=== PATIENT | male | born 1950 | race Caucasian/White ===

== ENCOUNTER 2016-11-22 16:24 | Emergency (ER) | payer BC ==
[2016-11-22 17:08] VITALS: BP 143/76
--- NOTE | 2016-11-22 17:56 | UC ---
Shoulder Pain HPI - HPI Summary HPI Summary: ONSET OF LEFT SHOULDER PAIN, WORSE WITH MOVEMENT 2 DAYS AGO. NO DISCRETE INJURY. 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 DENIES CP, SOB, NAUSEA. - History of Current Complaint Chief Complaint: UCUpperExtremity Stated Complaint: LEFT SHOULDER PAIN Time Seen by Provider: 11/22/16 17:42 Hx Obtained From: Patient Onset/Duration: Gradual Onset, Lasting Days, Resolved Timing: Intermittent Episode Lasting Severity Initially: Moderate Severity Currently: None Location Of Pain: Is Discrete @ - LEFT SHOULDER Pain Intensity: 7 - 7/10 AT WORST, CURRENTLY PAIN IS RESOLVED Pain Scale Used: 0-10 Numeric Character: Sharp Aggravating Factor(s): Movement Alleviating Factor(s): Rest Associated Signs And Symptoms: Negative: Swelling, Redness, Numbness/Tingling Related History: Dominant Hand Right - Allergies/Home Medications Allergies/Adverse Reactions: Allergies Allergy/AdvReac Type Severity Reaction Status Date / Time No Known Allergies Allergy Verified 11/22/16 16:44 Home Medications: Home Medications Allopurinol TAB* [Zyloprim 100 MG TAB*] 100 mg PO DAILY 11/22/16 [History Confirmed 11/22/16] Bp Med, ?Name 11/22/16 [History] Hydrochlorothiazide TAB* [Hydrodiuril TAB*] 25 mg PO DAILY 11/22/16 [History Confirmed 11/22/16] Lisinopril TAB* [Prinivil TAB 10 MG*] 10 mg PO DAILY 11/22/16 [History Confirmed 11/22/16] amLODIPine TAB* [Norvasc 5 mg TAB*] 5 mg PO DAILY 11/22/16 [History Confirmed ] PMH/Surg Hx/FS Hx/Imm Hx Endocrine History: Thyroid Disease Cardiovascular History: Hypertension Cancer History: Prostate Cancer - Surgical History Surgical History: Yes Surgery Procedure, Year, and Place: PROSTATECTOMY. HERNIA REPAIR - Family History Known Family History: Negative: Hypertension - Social History Alcohol Use: Occasionally Substance Use Type: None Smoking Status (MU): Former Smoker Type: Cigarettes When Did the Patient Quit Smoking/Using Tobacco: 1978 Review of Systems Constitutional: Negative Skin: Negative Respiratory: Negative Cardiovascular: Negative Gastrointestinal: Negative Musculoskeletal: Arthralgia All Other Systems Reviewed And Are Negative: Yes Physical Exam Triage Information Reviewed: Yes Appearance: Well-Appearing, No Pain Distress, Well-Nourished Vital Signs: Initial Vital Signs Temp 98.4 F 11/22/16 16:56 Pulse 56 11/22/16 16:56 Resp 20 11/22/16 16:56 BP 143/76 11/22/16 16:56 Pulse Ox 97 11/22/16 16:56 Vital Signs Reviewed: Yes Eyes: Positive: Conjunctiva Clear ENT: Positive: Hearing grossly normal Neck: Positive: Supple Respiratory: Positive: No respiratory distress, No accessory muscle use Cardiovascular: Positive: Pulses Normal Abdomen Description: Positive: Soft Musculoskeletal: Positive: ROM Intact, No Edema, Other: - NOT TTP OVER MUSCLES OR BONY PROMINENCES LEFT SHOULDER/NECK Neurological: Positive: Alert Psychological: Positive: Age Appropriate Behavior Skin: Negative: rashes Diagnostics - Radiology LEFT SHOULDER XRAY Xray Interpretation: Positive (See Comments) - Mild acromioclavicular and moderate glenohumeral joint osteoarthritis. Radiology Interpretation Completed By: Radiologist Shoulder Course/Dx - Differential Dx/Diagnosis Provider Diagnoses: LEFT SHOULDER OSTEOARTHRITIS Discharge - Discharge Plan Condition: Stable Disposition: HOME Prescriptions: Cyclobenzaprine TAB* [Flexeril TAB*] 10 mg PO BID PRN #30 tab PRN Reason: Pain Naproxen [Naproxen EC] 500 mg PO BID PRN #30 tab PRN Reason: Pain Patient Education Materials: Osteoarthritis (ED) Referrals: Wilmer Naidu MD [Medical Doctor] - If Needed Ian Taylor MD [Primary Care Provider] - If Needed Additional Instructions: XRAY TODAY SHOWED SOME OSTEOARTHRITIS IN YOUR SHOULDER. YOU MAY HAVE AGGRAVATED THIS CONDITION BY REPETITIVE USE OF YOUR ARMS. TRY TO AVOID HEAVY PHYSICAL ACTIVITY AND OVERHEAD ACTIVITY WITH YOUR LEFT ARM AND WEAR THE SLING NEEDED FOR COMFORT. THIS MAY HELP WITH RESOLUTION OF SYMPTOMS. IF YOU ARE NOT IMPROVING OVER THE NEXT WEEK OR SO WOULD FOLLOW-UP WITH YOUR PCP OR ORTHO.
--- NOTE | 2016-11-22 18:14 | RAD ---
Indication: LEFT shoulder pain for 5 days. Comparison: No relevant prior exams available on the [facility] for comparison. Technique: Internal rotation AP, external rotation Grashey, scapular Y, axillary views LEFT shoulder Report: Normal acromioclavicular and glenohumeral joint alignment. Negative for fracture. Mild acromioclavicular and glenohumeral joint osteophytosis. Moderate glenohumeral joint space narrowing and mild subchondral sclerosis. Negative for stigmata of calcific tendinopathy. Unremarkable soft tissue contours. IMPRESSION: Mild acromioclavicular and moderate glenohumeral joint osteoarthritis.
== END 2016-11-22 18:53 | disposition home or self-care (01) ==
LOC: UCCORT 16:24
DX: M19.012 Primary osteoarthritis, left shoulder (principal); I10 Essential (primary) hypertension; E07.9 Disorder of thyroid, unspecified; Z85.46 Personal history of malignant neoplasm of prostate; Z87.891 Personal history of nicotine dependence
CPT/HCPCS: 93005; 99203; G0463

== ENCOUNTER 2016-12-24 11:58 | Emergency (ER) | payer BC ==
[2016-12-24 12:49] VITALS: BP 153/81
--- NOTE | 2016-12-24 14:20 | UC ---
Skin Complaint HPI - HPI Summary HPI Summary: Blisery and itchy rash on anterior thighs for one week - History of Current Complaint Chief Complaint: UCSkin Time Seen by Provider: 12/24/16 14:12 Stated Complaint: SKIN COMPLAINT Hx Obtained From: Patient Onset/Duration: Gradual Onset, Lasting Weeks - 1 Timing: Constant Onset Severity: Mild Current Severity: Mild Location: Diffuse - anterior bilateral thighs Aggravating Factor(s): Nothing Alleviating Factor(s): Nothing Associated Signs & Symptoms: Positive: Negative - Allergy/Home Medications Allergies/Adverse Reactions: Allergies Allergy/AdvReac Type Severity Reaction Status Date / Time No Known Allergies Allergy Verified 12/24/16 12:49 Home Medications: Home Medications Fluticasone NASAL SPRAY 50MCG* [Flonase NASAL SPRAY 50MCG*] 2 spray BOTH NARES DAILY PRN 12/24/16 [History Confirmed 12/24/16] Review of Systems Constitutional: Negative Skin: Rash - Small vesicles that open and scab Eyes: Negative ENT: Negative Respiratory: Negative Cardiovascular: Negative Gastrointestinal: Negative Genitourinary: Negative Motor: Negative Neurovascular: Negative Musculoskeletal: Negative Neurological: Negative Psychological: Negative Is Patient Immunocompromised?: No All Other Systems Reviewed And Are Negative: Yes PMH/Surg Hx/FS Hx/Imm Hx Previously Healthy: No - Gout Cardiovascular History: Hypertension - Surgical History Surgical History: Yes Surgery Procedure, Year, and Place: PROSTATECTOMY. HERNIA REPAIR - Family History Known Family History: Negative: Hypertension - Social History Occupation: Employed Full-time Lives: With Family Alcohol Use: Occasionally Substance Use Type: None Smoking Status (MU): Former Smoker Type: Cigarettes When Did the Patient Quit Smoking/Using Tobacco: 1978 Physical Exam Triage Information Reviewed: Yes Appearance: Well-Appearing, No Pain Distress, Well-Nourished Vital Signs: Initial Vital Signs Temp 98.4 F 12/24/16 12:43 Pulse 85 12/24/16 12:43 Resp 22 12/24/16 12:43 BP 153/81 12/24/16 12:43 Pulse Ox 97 12/24/16 12:43 Vital Signs Reviewed: Yes Eye Exam: Normal Eyes: Positive: Conjunctiva Clear ENT Exam: Normal ENT: Positive: Normal ENT inspection, Hearing grossly normal. Negative: Nasal congestion, Nasal drainage, Trismus, Muffled/hoarse voice Dental Exam: Normal Neck exam: Normal Neck: Positive: Supple, Nontender Respiratory Exam: Normal Respiratory: Positive: Chest non-tender, Lungs clear, No accessory muscle use Cardiovascular Exam: Normal Cardiovascular: Positive: RRR, Pulses Normal, Brisk Capillary Refill Abdominal Exam: Normal Musculoskeletal Exam: Normal Musculoskeletal: Positive: Strength Intact, ROM Intact Neurological Exam: Normal Neurological: Positive: Alert, Muscle Tone Normal Psychological Exam: Normal Skin Exam: Normal, Other Skin: Positive: Other - scattered vesicules that break and scab- Course/Dx - Course Course Of Treatment: Bactrimmild soap and water wash follow with pcp prn - Diagnoses Provider Diagnoses: Folliculitis, hypertension in poor control Discharge - Discharge Plan Condition: Stable Disposition: HOME Prescriptions: Sulfamethox/Trimethoprim DS* [Bactrim DS 800/160 TAB*] 1 tab PO BID #20 tab Patient Education Materials: Folliculitis (ED), DASH Eating Plan (ED), Hypertension (ED) Referrals: Ian Taylor MD [Primary Care Provider] - 2 Weeks
== END 2016-12-24 14:27 | disposition home or self-care (01) ==
LOC: UCCORT 11:58
DX: L73.9 Follicular disorder, unspecified (principal); I10 Essential (primary) hypertension; Z85.46 Personal history of malignant neoplasm of prostate; Z87.891 Personal history of nicotine dependence
CPT/HCPCS: 99212; G0463

== ENCOUNTER 2018-05-12 11:12 | Emergency (ER) | payer BC ==
[2018-05-12 12:13] VITALS: BP 140/70
--- NOTE | 2018-05-12 12:18 | UC ---
Eye Complaint HPI - HPI Summary HPI Summary: Right greater than left eye lid sticky drainage for 10 days; upper right lid redness today; slight itching, watering. No FB, no injury reported. has been using allergy eye drops without relief. - History of Current Complaint Chief Complaint: UCEye Stated Complaint: RIGHT EYE CONCERN Time Seen by Provider: 05/12/18 12:16 Hx Obtained From: Patient Onset/Duration: Gradual Onset, Lasting Days Timing: Constant Severity Initially: Mild Severity Currently: None Pain Intensity: 0 Location of Injury: Conjunctiva, Eye Lid (upper) - right, Sclera Associated Signs And Symptoms: Positive: Drainage (Purulent) - Allergies/Home Medications Allergies/Adverse Reactions: Allergies Allergy/AdvReac Type Severity Reaction Status Date / Time environmental Allergy Eyes Uncoded 05/12/18 12:14 Itchy/Swollen/Red/Watery Home Medications: Home Medications Ibuprofen TAB* [Advil TAB*] 200 mg PO Q6H PRN 05/12/18 [History Confirmed ] Loratadine 10 mg PO DAILY PRN 05/12/18 [History Confirmed 05/12/18] glipiZIDE TAB* [Glucotrol TAB*] 5 mg PO DAILY 05/12/18 [History Confirmed ] PMH/Surg Hx/FS Hx/Imm Hx Previously Healthy: Yes - Surgical History Surgical History: Yes Surgery Procedure, Year, and Place: PROSTATECTOMY. HERNIA REPAIR - Family History Known Family History: Negative: Hypertension - Social History Alcohol Use: Occasionally Substance Use Type: None Smoking Status (MU): Former Smoker Type: Cigarettes When Did the Patient Quit Smoking/Using Tobacco: 1978 Review of Systems All Other Systems Reviewed And Are Negative: Yes Constitutional: Positive: Negative Skin: Positive: Negative Eyes: Positive: Drainage, Eye Redness, Other - swollen upper lash line on right eye ENT: Positive: Nasal Discharge Respiratory: Positive: Negative Cardiovascular: Positive: Negative Gastrointestinal: Positive: Negative Genitourinary: Positive: Negative Motor: Positive: Negative Neurovascular: Positive: Negative Musculoskeletal: Positive: Negative Neurological: Positive: Negative Psychological: Positive: Negative Is Patient Immunocompromised?: No Physical Exam Triage Information Reviewed: Yes Appearance: Well-Appearing, Well-Nourished, Pain Distress Vital Signs: Initial Vital Signs Temp 99.4 F 05/12/18 12:06 Pulse 67 05/12/18 12:06 Resp 18 05/12/18 12:06 BP 140/70 05/12/18 12:06 Pulse Ox 95 05/12/18 12:06 Eyes: Positive: Conjunctiva Clear, Conjunctiva Inflamed, Discharge, Other: - right upper lid swelling along lash line, 2 styes noted ENT Exam: Normal ENT: Positive: Pharynx normal, Nasal congestion, Nasal drainage, TMs normal Dental Exam: Normal Neck exam: Normal Respiratory Exam: Normal Respiratory: Positive: Chest non-tender, Lungs clear, Normal breath sounds Cardiovascular Exam: Normal Cardiovascular: Positive: RRR, No Murmur, Pulses Normal Musculoskeletal Exam: Normal Neurological Exam: Normal Psychological Exam: Normal Skin Exam: Normal Eye Complaint Course/Dx - Course Course Of Treatment: hx obtained, exam performed ,meds reviewed, tread for conjunctivitis and styes - Differential Dx/Diagnosis Differential Diagnosis/HQI/PQRI: Conjunctivitis, Corneal Abrasion Provider Diagnosis: Stye, Conjunctivitis Discharge - Sign-Out/Discharge Documenting (check all that apply): Patient Departure All imaging exams completed and their final reports reviewed: No Studies - Discharge Plan Condition: Stable Disposition: HOME Prescriptions: Erythromycin OPHTH.OINT* [Ilotycin OPHTH.OINT*] 1 applic BOTH EYES TID #1 tube Patient Education Materials: Stye (ED), Conjunctivitis (ED) Referrals: Ian Taylor MD [Primary Care Provider] - Dell Gold OD [Doctor of Osteopathy] - Indio Harding MD [Medical Doctor] - Additional Instructions: 1. apply warm compresses to the right eye 3-4 times a day 2. use the medication as prescribed. 3. wash the lids after each warm compress. 4. FOllow up with eye doctor if not improving. i have included the names of a couple eye doctors if needed. - Billing Disposition and Condition Condition: STABLE Disposition: Home - Attestation Statements Provider Attestation: Per institutional requirements, I have reviewed the chart, however, I was not consulted specifically or made aware of this patient by the midlevel provider. I did not personally evaluate, interact with , or disposition this patient.
== END 2018-05-12 12:46 | disposition home or self-care (01) ==
LOC: UCCORT 11:12
DX: H00.011 Hordeolum externum right upper eyelid (principal); H10.9 Unspecified conjunctivitis; Z91.09 Other allergy status, other than to drugs and biological substances; Z87.891 Personal history of nicotine dependence
CPT/HCPCS: 99212; G0463

== ENCOUNTER 2019-01-25 11:41 | Emergency (ER) | payer BC ==
--- OUTSIDE RECORDS SUMMARY | 2019-01-25 11:47 | XMS REPORT | Summary of Care ---
:1950 Author Organization [facility] Address [address] [address] Care Team Providers Name Role Phone Ian Taylor Primary Care Provider Gerardo Wesley OD Primary Preparation Operator/[employer] Analyst Reason for Visit Reason Comments Wound Abscess f/u umbilical abscess, on second course of bactrim, feels better Arthritis discuss hand pain and pain mgt, takes 200mg ibuprofen q am Encounter Details Date Type Department Care Team Description 11/27/2018 Office Visit [facility] Ian Taylor MD Ulcer of abdomen wall, limited to breakdown of skin (HCC) (Primary Dx); Medicine [address] Needs flu shot; [address] [place] [address] Abdominal infection (HCC); [place] [address] Controlled type 2 diabetes mellitus without complication, without long-term current use of insulin ([facility]); [phone] BMI 39.0-39.9,adult Allergies Active Allergy Reactions Severity Noted Date Comments Environmental Other 11/26/2013 Itchy eye, runny nose, Metformin GI Reaction 01/01/2019 Diarrhea No Known Allergies Other 04/30/2007 documented as of this encounter (statuses as of 01/01/2019) Medications Medication Sig Dispensed Refills Start End Status Date Date loratadine Take 10 mg by 0 Active (CLARITIN,ALAVERT) 10 mouth DAILY. mg Oral Tab daily vitamin Oral Tab Take 1 Tab by 0 Active mouth DAILY. triamcinolone by Topical 30 g 5 Active (KENALOG,ARISTOCORT) route. Apply 1 0.1 % Apply externally to affected CreamIndications: areas daily Dermatitis as needed acetaminophen (TYLENOL) Take 650 mg 0 Active 325 MG Oral Tab by mouth EVERY FOUR HOURS NEEDED. colchicine (COLSALIDE) Take 1 Tab by 30 Tab 2 Active 0.6 MG Oral mouth TWO 4 TabIndications: Gout, TIMES DAILY unspecified NEEDED (gout). ibuprofen (MOTRIN) 200 Take 400 mg 0 Active MG Oral Tab by mouth EVERY SIX HOURS NEEDED for Pain. Ascorbic Acid (VITAMIN Take 1 Each 0 Active C) 500 MG Oral Cap by mouth DAILY. cyclobenzaprine Take 10 mg by 0 Active (CYCLOBENZAPRINE) 5 MG mouth THREE Oral Tab TIMES DAILY NEEDED. amLodipine (NORVASC) 5 TAKE ONE 90 Tab 3 Active MG Oral Tab TABLET BY 8 MOUTH EVERY DAY allopurinol (ZYLOPRIM) TAKE TWO 180 Tab 3 Active 100 MG Oral Tab TABLETS BY 9 MOUTH EVERY DAY fluticasone (FLONASE) SPRAY 2 16 g 11 Active 50 MCG/ACT Nasal SPRAYS IN 9 Suspension EACH NOSTRIL ONCE DAILY glipiZIDE (GLUCOTROL Take 1 Tab by 90 Tab 3 Active XL) 2.5 MG Oral TABLET mouth DAILY. 9 SR 24 HR hydrochlorothiazide TAKE ONE 90 Cap 3 Active (HCTZ, ORETIC) 12.5 MG CAPSULE BY 9 Oral Cap MOUTH EVERY DAY lisinopril (PRINIVIL, TAKE ONE 90 Tab 3 Active ZESTRIL) 40 MG Oral Tab TABLET BY 9 MOUTH EVERY DAY sulfamethoxazole-trimet Take 1 Tab by 20 Tab 3 Active hoprim (BACTRIM DS, mouth TWICE 9 SEPTRA DS) 800-160 MG DAILY. Oral Tab levothyroxine TAKE ONE 90 Tab 1 Discontinued (SYNTHROID) 50 MCG Oral TABLET BY 9 019 (Reorder) Tab MOUTH EVERY MORNING BEFORE BREAKFAST documented as of this encounter (statuses as of 01/01/2019) Active Problems Patient Care Coordination Note Met with pt reguarding wound care follow up. Pt to resume follow up with [facility]. Call placed to Masha at wound center, pt is already scheduled to come in on Sunday January 20, 2013 at 0800 for wound vac change. Most recent progress note (no discharge summary available) faxed to [phone] Problem Noted Date Diverticulosis of large intestine without hemorrhage 04/04/2018 Controlled type 2 diabetes mellitus without complication, without 12/25/2017 long-term current use of insulin Abdominal infection 08/27/2017 Tear of rotator cuff 01/19/2017 Tear of left rotator cuff 12/16/2016 Acute pain of left shoulder 12/04/2016 Erythrocytosis 02/03/2016 Overview: Due to obstructive sleep apnea, sometimes needing therapeutic phlebotomy if hematocrit is over 48. Gets monthly hemoglobin and hematocrit at [facility]. Skin erythema 04/28/2015 Fluid collection at surgical site 12/09/2014 Iliac artery aneurysm, bilateral 03/26/2014 Ventral hernia 10/27/2013 S/P recurrent ventral herniorrhaphy 05/05/2013 Chronic ulcer of other specified site 01/28/2013 Disruption of external operation (surgical) wound 01/28/2013 Non-healing surgical wound 01/28/2013 Abdominal fluid collection 01/16/2013 Wound infection after surgery 01/08/2013 Infected prosthetic mesh of abdominal wall 12/19/2012 Incisional hernia 10/28/2012 Secondary erythrocytosis 09/29/2012 Overview: Due to obstructive sleep apnea, periodically needing phlebotomy BMI 40.0-44.9, adult 09/29/2012 Overview: This patient's BMI has been calculated and is above average, and BMI management plan is completed. General patient education discussion including: obesity-related excess mortality, weight loss link to reduction of risk factors for cardiac and other diseases, importance of long-term maintenance treatment in weight loss Gout 09/26/2012 Overview: Not in last 10 years Mixed hyperlipidemia 05/21/2012 Overview: Lab Results Lab Results Value Date/Time CHOL 234 12/28/2011 1508 TRIG 296 12/28/2011 1508 HDL 32 12/28/2011 1508 LDL 143 12/28/2011 1508 LDLHDLRATIO 4.5 12/28/2011 1508 CHOLHDLRATIO 7.3 12/28/2011 1508 NAFLD (nonalcoholic fatty liver disease) 05/21/2012 Overview: Matt Sampson N.P. GI Prostate carcinoma 12/28/2011 Overview: [place] 3+3= 6, undergoing Lupron treatment, for planned prostatectomy HTN (hypertension), benign 09/11/2009 APOLINAR (obstructive sleep apnea) 12/23/2007 Overview: Bilevel positive airway pressure compliant with treatment Pulmonary MD Dr Rio [place], [place] Calculus of kidney 12/05/2006 Overview: [facility] 2013, uric acid composition Allergic rhinitis, cause unspecified 12/05/2006 Gout, unspecified 12/05/2006 Overview: 1st MTP left Hypothyroidism 12/05/2006 Personal history of colonic polyps 05/28/2006 Overview: Polypectomy 2007 Personal history of tobacco use, presenting hazards to health 05/28/2006 Overview: Quit 1979 Smoked from age [age] Polycythemia, secondary Diabetes documented as of this encounter (statuses as of 01/01/2019) Resolved Problems Problem Noted Date Resolved Date SBO (small bowel obstruction) 12/19/2012 12/19/2012 Ventral hernia, unspecified, without mention of obstruction 11/29/20122012 or gangrene Morbid obesity 12/28/2011 12/26/2012 Overview: This patient's BMI has been calculated and is above average, and BMI management plan is completed. General patient education discussion including: obesity-related excess mortality, weight loss link to reduction of risk factors for cardiac and other diseases, importance of long-term maintenance treatment in weight loss HTN (hypertension) 12/23/2007 09/11/2009 Overview: Replaced inactive diagnosis Depressive disorder, not elsewhere classified 12/05/2006 05/21/2012 Obstructive sleep apnea (adult) (pediatric) 12/05/2006 02/10/2008 Erectile dysfunction 05/21/2012 Erythrocytosis 05/21/2012 documented as of this encounter (statuses as of 01/01/2019) Immunizations Name Administration Dates Next Due H1N1 Injectable Adult 04/14/2009 Influenza (IM) Preservative Free 01/08/2014, 12/26/2012, 12/28/2011, 04/13/2011, 01/17/2010, 04/14/2009, 12/23/2007 Influenza Vaccine 65 Yrs + 11/27/2018 Influenza Vaccine High Dose 12/13/2017, 02/21/2017, 01/06/2016, 02/25/2015 Influenza Virus Vaccine - Whole 02/19/2007, 01/17/2006, 03/04/2003 Lupron 22.5mg 11/29/2015, 09/02/2015, 05/24/2015, 02/25/2015, 11/24/2014, 08/27/2014, 05/28/2014, 03/03/2014, 12/02/2013, 02/02/2012, 10/19/2011, 07/27/2011 PNEUMOCOCCAL POLYSACCHARIDE VACCINE 01/17/2006 Pneumococcal Conjugate(13 Valent) 03/26/2014 TDAP Vaccine 07/30/2008 ZOSTER (ZOSTAVAX) VACCINE 05/28/2014 documented as of this encounter Social History Tobacco Use Types Packs/Day Years Used Date Former Smoker Cigarettes 1 Quit: 09/16/1978 Smokeless Tobacco: Former User Alcohol Use Drinks/Week oz/Week Comments Yes 0-1 Cans of beer 0.0 on occassion Sex Assigned at Date Recorded Not on file Job Start Date Occupation Industry Not on file Not on file Not on file Travel History Travel Start Travel End No recent travel history available. documented as of this encounter Last Filed Vital Signs Vital Sign Reading Time Taken Comments Blood Pressure 122/76 11/27/2018 4:03 PM EDT Pulse 60 11/27/2018 4:03 PM EDT Temperature 36.1 11/27/2018 4:03 PM EDT C (96.9 F) Respiratory Rate - - Oxygen Saturation - - Inhaled Oxygen Concentration - - Weight 122 kg (269 lb) 11/27/2018 4:03 PM EDT Height 175.3 cm (5' 9") 11/27/2018 4:03 PM EDT Body Mass Index 39.72 11/27/2018 4:03 PM EDT documented in this encounter Patient Instructions Patient InstructionsIan Taylor MD - 11/27/2018 3:50 PM EDTContinue same medicines Use more antibiotic if needed follow up 4 months with labs first, as ordered documented in this encounter Progress Notes Ian Taylor MD - 11/27/2018 3:50 PM EDT PATIENT: Otoniel Jarquin : 1950 DATE OF SERVICE: 11/27/2018 CHIEF COMPLAINT: Chief Complaint Patient presents with Wound Abscess f/u umbilical abscess, on second course of bactrim, feels better Arthritis discuss hand pain and pain mgt, takes 200mg ibuprofen q am Subjective HISTORY OF PRESENT ILLNESS: Otoniel Jarquin is a 68-y.o. male. HPI abd wound better with Bactrim. He has finished the course. Having pain in his hands, mostly in IP joints, uses ibuprofen. Told him this is most consistent with osteoarthritis. Doubt autoimmune disease. Past Medical History: Diagnosis Date Anemia of other chronic disease Calculus of kidney 12/05/2006 Calculus of kidney 12/05/2006 Cancer (HCC) Depressive disorder, not elsewhere classified 12/05/2006 Diabetes ([facility]) Erectile dysfunction Erythrocytosis Fractures Gout, unspecified 12/05/2006 Hernia of unspecified site of abdominal cavity without mention of obstruction or gangrene incisional Liver disease Mixed hyperlipidemia 05/21/2012 Obesity APOLINAR (obstructive sleep apnea) 12/05/2006 Osteoarthrosis and allied disorders Polycythemia, secondary Prostate disease polyuria, frequency of urination, hesitancy, elevated PSA Prostatic adenocarcinoma (HCC) T1c, now s/p prostatectomy SBO (small bowel obstruction) (HCC) 12/19/2012 SBO (small bowel obstruction) (HCC) 12/19/2012 Unspecified hypertensive heart disease Unspecified hypothyroidism 12/05/2006 Family History Problem Relation Age of Onset Cancer Mother lymphoma GI Father AAA ruptured Cancer Maternal Uncle Diabetes No family history Glaucoma No family history Blindness No family history Macular Degeneration No family history Hypertension No family history Current Outpatient Medications Medication Sig acetaminophen (TYLENOL) 325 MG Oral Tab Take 650 mg by mouth EVERY FOUR HOURS NEEDED. allopurinol (ZYLOPRIM) 100 MG Oral Tab TAKE TWO TABLETS BY MOUTH EVERY DAY amLodipine (NORVASC) 5 MG Oral Tab TAKE ONE TABLET BY MOUTH EVERY DAY Ascorbic Acid (VITAMIN C) 500 MG Oral Cap Take 1 Each by mouth DAILY. colchicine (COLSALIDE) 0.6 MG Oral Tab Take 1 Tab by mouth TWO TIMES DAILY NEEDED (gout). cyclobenzaprine (CYCLOBENZAPRINE) 5 MG Oral Tab Take 10 mg by mouth THREE TIMES DAILY NEEDED. daily vitamin Oral Tab Take 1 Tab by mouth DAILY. fluticasone (FLONASE) 50 MCG/ACT Nasal Suspension SPRAY 2 SPRAYS IN EACH NOSTRIL ONCE DAILY glipiZIDE (GLUCOTROL XL) 2.5 MG Oral TABLET SR 24 HR Take 1 Tab by mouth DAILY. hydrochlorothiazide (HCTZ, ORETIC) 12.5 MG Oral Cap TAKE ONE CAPSULE BY MOUTH EVERY DAY ibuprofen (MOTRIN) 200 MG Oral Tab Take 400 mg by mouth EVERY SIX HOURS NEEDED for Pain. levothyroxine (SYNTHROID) 50 MCG Oral Tab TAKE ONE TABLET BY MOUTH EVERY MORNING BEFORE BREAKFAST lisinopril (PRINIVIL, ZESTRIL) 40 MG Oral Tab TAKE ONE TABLET BY MOUTH EVERY DAY loratadine (CLARITIN,ALAVERT) 10 mg Oral Tab Take 10 mg by mouth DAILY. sulfamethoxazole-trimethoprim (BACTRIM DS, SEPTRA DS) 800-160 MG Oral Tab Take 1 Tab by mouthTWICE DAILY. triamcinolone (KENALOG,ARISTOCORT) 0.1 % Apply externally Cream by Topical route. Apply to affected areas daily as needed No current facility-administered medications for this visit. Allergies Allergen Reactions Environmental Other Itchy eye, runny nose, Metformin GI Reaction Diarrhea Nka [No Known Allergies] Other Social History Socioeconomic History Marital status: Spouse name: Not on file Number of children: Not on file Years of education: Not on file Highest education level: Not on file Occupational History Not on file Social Needs Financial resource strain: Not on file Food insecurity: Worry: Not on file Inability: Not on file Transportation needs: Medical: Not on file Non-medical: Not on file Tobacco Use Smoking status: Former Smoker Packs/day: 1.00 Types: Cigarettes Last attempt to quit: 09/16/1978 Years since quittin.2 Smokeless tobacco: Former User Substance and Sexual Activity Alcohol use: Yes Alcohol/week: 0.0 standard drinks Comment: on occassion Drug use: No Sexual activity: Not Currently Lifestyle Physical activity: Days per week: Not on file Minutes per session: Not on file Stress: Not on file Relationships Social connections: Talks on phone: Not on file Gets together: Not on file Attends scientology service: Not on file Active member of club or organization: Not on file Attends meetings of clubs or organizations: Not on file Relationship status: Not on file Intimate partner violence: Fear of current or ex partner: Not on file Emotionally abused: Not on file Physically abused: Not on file Forced sexual activity: Not on file Other Topics Concern Back Care Not Asked Bike Helmet Not Asked Blood Transfusions Not Asked Caffeine Concern Not Asked Exercise No Hobby Hazards Not Asked International Travel Not Asked Service Not Asked Occupational Exposure Not Asked Seat Belt Not Asked Self-Exams Not Asked Sleep Concern Not Asked Special Diet Yes Comment: low purine Stress Concern Not Asked Weight Concern Yes Social History Narrative Lives in [facility] area REVIEW OF SYSTEMS: Review of Systems Constitutional: Negative for malaise/fatigue. HENT: Negative for congestion. Eyes: Negative for blurred vision. Respiratory: Negative for shortness of breath. Cardiovascular: Negative for chest pain. Gastrointestinal: Negative for abdominal pain. Genitourinary: Negative for frequency. Musculoskeletal: Positive for joint pain. Psychiatric/Behavioral: Negative for depression. Objective PHYSICAL EXAM: VITALS: BP 122/76 | Pulse 60 | Temp 96.9 F (36.1 C) | Ht 5' 9" ( 1.753 m) | Wt 269 lb (122 kg) | BMI 39.72 kg/m Body mass index is 39.72 kg/m. Physical Exam Alert, oriented, in no acute distress. Vitals as above. HEENT: unremarkable. Neck: No palpable lymphadenopathy in the submandibular, submental, anterior cervical, posterior cervical, or occipital chains, nor in the supraclavicular spaces. No JVD, thyromegaly. LUNGS: clear. HEART: Regular rate and rhythm. Abdomen positive bowel sounds soft nontender. Obese. No hepatosplenomegaly or masses. Lower abdominal wall at site of prior surgery without sign of infection or skinbreakdown presently. Still with chronic left flank fluid collection EXTREMITIES: no cyanosis, clubbing, or edema. ASSESSMENT / IMPRESSION: ICD-9-CM ICD-10-CM 1. Ulcer of abdomen wall, limited to breakdown of skin (HCC)better now 707.8 L98.491 2. Needs flu shot V04.81 Z23 FL FLU VACCINE 65 YRS + 3. Abdominal infection (HCC)better now 567.9 K65.9 CBC WITH DIFFERENTIAL 4. Controlled type 2 diabetes mellitus without complication, without long-term current use of insulin (HCC)controlled. Last hemoglobin A1c 5.5. On low- dose glipizide. Had diarrhea with metformin. At next visit consider switching to another agent like empagliflozin which has cardioprotective effects 250.00 E11.9 COMPREHENSIVE METABOLIC PANEL LIPID PROFILE GLYCOHEMOGLOBIN A1C MICROALBUMIN, RANDOM URINE W/ CREATININE 5. BMI 39.0-39.9,adultworking with colon therapist V85.39 Z68.39 Patient Instructions Continue same medicines Use more antibiotic if needed follow up 4 months with labs first, as ordered Author: Ian Taylor MD 11/27/2018 16:42 documented in this encounter Plan of Treatment Date Type Specialty Care Team Description 03/29/2019 Lab Internal Medicine 04/03/2019 Office Visit Internal Medicine Ian Taylor MD [address] [place] [id number] 04/03/2019 Office Visit Internal Medicine Xuan Parker, DAVID [address] [place] [id number] 10/24/2019 Ocular Visit Optometry Gerardo Wesley, OD [address] [address] Name Type Priority Associated Diagnoses Order Schedule COMPREHENSIVE METABOLIC Lab Routine Controlled type 2 Expected: 11/27/2018 PANEL diabetes mellitus (Approximate), without complication, Expires: 05/26/2019 without long-term current use of insulin ([facility]) LIPID PROFILE Lab Routine Controlled type 2 Expected: 11/27/2018 diabetes mellitus (Approximate), without complication, Expires: 05/26/2019 without long-term current use of insulin (HCC) GLYCOHEMOGLOBIN A1C Lab Routine Controlled type 2 Expected: 11/27/2018 diabetes mellitus (Approximate), without complication, Expires: 05/26/2019 without long-term current use of insulin (HCC) CBC WITH DIFFERENTIAL Lab Routine Abdominal infection Expected: 11/27/2018 (HCC) (Approximate), Expires: 05/26/2019 MICROALBUMIN, RANDOM URINE Lab Routine Controlled type 2 1 Occurrences starting W/ CREATININE diabetes mellitus 11/27/2018 until without complication, 05/26/2019 without long-term current use of insulin (HCC) Health Maintenance Due Date Last Done Comments ZOSTER IMMUNIZATION SERIES 07/23/2014 05/28/2014 (2 of 3) PNEUMOCOCCAL 65+YRS (2 of 2 03/26/2015 03/26/2014, 01/17/2006 - PPSV23) COLONOSCOPY SCREENING 03/04/2018 03/04/2013, 07/15/2007, 07/15/2007 HEMOGLOBIN A1C 04/21/2019 10/19/2018, 07/20/2018, 03/23/2018, Additional history exists DEPRESSION SCREENING 07/26/2019 07/25/2018 FOOT EXAM 07/26/2019 07/25/2018, 07/25/2018 LIPID DISORDER SCREENING 10/20/2019 10/19/2018, 07/20/2018, 03/23/2018, Additional history exists FALL RISK ASSESSMENT 10/25/2019 10/24/2018, 10/24/2018 Diabetic Eye Exam 10/11/2020 10/11/2018, 10/11/2018, 10/11/2018 AAA SCREENING/SURVEILLANCE Completed 02/28/2018, 04/18/2017, 03/05/2017, Additional history exists INFLUENZA VACCINE Completed 11/27/2018, 12/13/2017, 02/21/2017, Additional history exists HPV IMMUNIZATION SERIES Aged Out No longer eligible based on patient's age to complete this topic MENINGOCOCCAL VACCINE IMM Aged Out No longer eligible based on patient's age to complete this topic documented as of this encounter Goals Goal Patient Goal Associated Recent Patient-Stated? Author Type Problems Progress Blood Pressure Blood Pressure 122/76 No Claudia, < 140/90 (11/27/2018 MD Ian 4:03 PM EDT) Note: This is an individualized treatment (blood pressure) goal for Otoniel Jarquin: Displayed above (on the left) is your goal for blood pressure control. Your most recent blood pressure is also shown above, on the right. You should try to achieve blood pressures that are lower than your goal listed above (on the left). Glycohemoglobin A1c < 7.0 Diabetes 5.5 (10/19/2018 8:09 AM No Ian Taylor MD EDT) Note: This is an individualized treatment (diabetes control, HgbA1C) goal for Otoniel Jarquin: Displayed above is your progress towards your HgbA1C goal. Your goal is shown above (on the left); your most recent HgbA1C is shown on the right. Note that lower numbers are better. Weight loss vs. 18 mo Lifestyle 21 (11/27/2018 4:03 PM EDT) No Ian Taylor MD max (lbs) >= 10 Note: This is an individualized lifestyle goal for Otoniel Jarquin: Your body mass index (BMI) is more than 30. You should lose weight. A reasonable starting goal is to lose 10 pounds. Displayed above is how many pounds you have lost thus far towards your 10 pound weight loss goal. Keep immunizations current Lifestyle No Ian Taylor MD Note: This is an individualized lifestyle goal for Otoniel Jarquin: Please be sure to keep up-to-date on recommended immunizations. For example, this would include a yearly influenza vaccine. Immunization status can be seen by looking at the Health Maintenance sections of your [facility], Plan of Care, and any After Visit Summaries. Take all prescribed medications as directed Self-management No Ian Taylor MD Note: This is an individualized self-management goal for Otoniel Jarquin: Please take all prescribed medications as directed. 1. Do not skip doses. If you cannot afford your medications, talk with your doctor. 2. Use a pill reminder system such as a pill box if needed. Your pharmacist can help you with this. 3. Contact your Pharmacy 5 days before your medication runs out. If you cannot take your medications for any reasons, talk with your doctor. 4. Please bring all of your medication bottles and inhalers (or a list of all your medications/inhalers) with you to every visit. Potential barriers to meeting all of your care plan goals will continue to be addressed on an ongoing basis. documented as of this encounter Implants Implanted Type Area Education Administrative Assistant Device Shelf Expiration Model / Identifier Date Serial / Lot Com[employer]ix Mesh 10.2 X 13.2" [employer] DAVID [id number] / Implanted: Qty: 1 on 11/28/2012 at [facility] / [id number] Description:[id number] Mesh, Prolite 30x30 - [id number] N/A: Abdomen COVIDIEN 02/16/2017 [id number] / Implanted: Qty: 1 on 12/04/2013 by Rio Bergeron MD at [facility] / [id number] documented as of this encounter Results Not on filedocumented in this encounter Visit Diagnoses Diagnosis Ulcer of abdomen wall, limited to breakdown of skin (HCC) - Primary Needs flu shot Need for prophylactic vaccination and inoculation against influenza Abdominal infection (HCC) Unspecified peritonitis Controlled type 2 diabetes mellitus without complication, without long-term current use of insulin (HCC) BMI 39.0-39.9,adult Body Mass Index 39.0-39.9, adult documented in this encounter Additional Health Concerns Infection Noted Time Resolved Time MRSA- Active 01/20/2013 7:21 AM EST documented as of this encounter Insurance Payer Benefit Plan / Subscriber ID Effective Dates Phone Address Type Group IWLLIAM THOMAS BCBS xxxxxxxxxxxx 2015-Present [employer] (Home) [address] [phone] [place], [place] (Work) [id number] documented as of this encounter Advance Directives Code Status Date Activated Date Inactivated Comments Full Code 04/01/2012 1:37 PM 04/03/2012 2:08 PM
[2019-01-25 12:39] VITALS: BP 149/85
--- NOTE | 2019-01-25 13:54 | UC ---
Throat Pain/Nasal Koby HPI - HPI Summary HPI Summary: 68 year old male present with 5-6 day history of sore throat, nasal congestion, post-nasal drip, bilateral ear fullness with "popping", and occasional productive cough. States sore throat tends to be worse first thing and in the morning. Has been using Deena Selter Plus with some relief in symptoms. Denies fever, chills, ear drainage, ear pain, dysphagia, chest pain, or SOB. - History of Current Complaint Chief Complaint: UCRespiratory Stated Complaint: ST Time Seen by Provider: 01/25/19 13:30 Hx Obtained From: Patient Pain Intensity: 3 - Allergies/Home Medications Allergies/Adverse Reactions: Allergies Allergy/AdvReac Type Severity Reaction Status Date / Time environmental Allergy Eyes Uncoded 01/25/19 12:33 Itchy/Swollen/Red/Watery Home Medications: Home Medications Levothyroxine TAB* [Synthroid TAB*] 25 mcg PO DAILY 01/25/19 [History Confirmed 01/25/19] Vitamin THERAPEUTIC TAB* [Theragran TAB*] 1 tab PO DAILY 01/25/19 [History Confirmed 01/25/19] PMH/Surg Hx/FS Hx/Imm Hx Endocrine History: Diabetes Cardiovascular History: Hypertension - Surgical History Surgical History: Yes Surgery Procedure, Year, and Place: Incisional Herniorrhaphies with Several Revisions; Prostatectomy, 2013, [place]; Herniorrhaphy - Family History Known Family History: Negative: Hypertension - Social History Occupation: Employed Full-time Lives: With Family Alcohol Use: Occasionally Substance Use Type: None Smoking Status (MU): Former Smoker Type: Cigarettes When Did the Patient Quit Smoking/Using Tobacco: 1979 Review of Systems All Other Systems Reviewed And Are Negative: Yes Constitutional: Negative: Fever, Chills Eyes: Negative: Drainage, Eye Redness ENT: Positive: Sore Throat, Nasal Discharge, Sinus Congestion. Negative: Sinus Pain/Tenderness Respiratory: Positive: Cough. Negative: Shortness Of Breath Cardiovascular: Negative: Palpitations, Chest Pain Gastrointestinal: Positive: Negative Genitourinary: Positive: Negative Musculoskeletal: Positive: Negative Neurological: Positive: Negative Is Patient Immunocompromised?: No Physical Exam - Summary Physical Exam Summary: GENERAL APPEARANCE: Alert and cooperative older adult male who appears to be in no acute distress. EYES: Conjunctiva clear. No drainage. EARS: External auditory canals and tympanic membranes clear, hearing grossly intact. NOSE: Mild-moderate nasal congestion. No nasal discharge. THROAT: Pharyngeal cobblestoning with post-nasal drip. No tonsilar inflammation , swelling, exudate, or lesions. Uvula midline. NECK: Neck supple, non-tender without lymphadenopathy. CARDIAC: Normal S1 and S2. No S3, S4 or murmurs. Rhythm is regular. There is no peripheral edema, cyanosis or pallor. Extremities are warm and well perfused. Capillary refill is less than 2 seconds. Peripheral pulses intact. LUNGS: Clear to auscultation without rales, rhonchi, wheezing or diminished breath sounds. ABDOMEN: Positive bowel sounds. Soft, nondistended, nontender. No guarding or rebound. No masses or hepatosplenomegally. MUSKULOSKELETAL: ROM intact to all extremities. No joint erythema or tenderness. Normal muscular development. Normal gait. SKIN: Skin normal color, texture and turgor with no lesions or eruptions. Triage Information Reviewed: Yes Vital Signs: Initial Vital Signs Temp 98.4 F 01/25/19 12:30 Pulse 66 01/25/19 12:30 Resp 18 01/25/19 12:30 BP 149/85 01/25/19 12:30 Pulse Ox 97 01/25/19 12:30 Vital Signs Reviewed: Yes Throat Pain/Nasal Course/Dx - Course Course Of Treatment: 68 year old male present with 5-6 day history of sore throat, nasal congestion, post-nasal drip, bilateral ear fullness with "popping", and occasional productive cough. States sore throat tends to be worse first thing and in the morning. Has been using Deena Selter Plus with some relief in symptoms. Denies fever, chills, ear drainage, ear pain, dysphagia, chest pain, or SOB. Afebrile. Hypertensive otherwise VSS. Patient had mild-moderate nasal congestion, normal TMs, pharyngeal cobblestoning with post-nasal drip, no cervical lymphadenopathy , clear bilateral breath sounds, and otherwise unremarkable exam. Rapid strep test was negative. Reviewed results with patient. Recommending continued symptomatic treatment for a viral URI. He is to follow up with his PCP in 3 days if symptoms persist. Anticipatory guidance and warning symptoms reviewed with patient. Verbalizes understanding and agrees with POC. - Differential Dx/Diagnosis Differential Diagnosis/HQI/PQRI: Mononucleosis, Peritonsillar Abscess, Pharyngitis, Sinusitis, Tonsillitis, URI Provider Diagnosis: Viral URI Discharge ED - Sign-Out/Discharge Documenting (check all that apply): Patient Departure All imaging exams completed and their final reports reviewed: No Studies - Discharge Plan Condition: Stable Disposition: HOME Patient Education Materials: Upper Respiratory Infection (ED) Referrals: Ian Taylor MD [Primary Care Provider] - 3 Days Additional Instructions: The rapid strep test performed in the clinic today was negative. Your history and exam are consistent with a viral upper respiratory infection. Viral infections do not respond to antibiotics and are limited to the treatment of symptoms. Viral infections typically run their course in 7-10 days. Drink plenty of fluids to avoid dehydration especially if you are running any fever. Continue to use fluticasone (Flonase) nasal spray 2 sprays each nostril once daily. Take over the counter acetaminophen (Tylenol) or ibuprofen (Advil, Motrin) according to directions as needed for pain or fever. Use salt water gargles several times a day if you have a sore throat. You may also use Chloraseptic spray or Cepacol lonzenges according to directions which contain a numbing medication and can provide some temporary relief from your sore throat. Follow up with your primary care provider in 3 days if symptoms persist. Seek immediate medical attention in the emergency room if you have fever greater than 100.5 F despite taking acetaminophen or ibuprofen, have chest pain , difficulty breathing, are unable to swallow, or have any worsening of symptoms. - Billing Disposition and Condition Condition: STABLE Disposition: Home - Attestation Statements Provider Attestation: I was available for consult. This patient was seen by the CARMEN. The patient was not presented to , seen by or examined by fl -Giuliano Hoyos MD
== END 2019-01-25 14:14 | disposition home or self-care (01) ==
LOC: UCCORT 11:41
DX: J06.9 Acute upper respiratory infection, unspecified (principal); I10 Essential (primary) hypertension; E11.9 Type 2 diabetes mellitus without complications; Z87.891 Personal history of nicotine dependence
CPT/HCPCS: 87651; 99212; G0463